=== PATIENT | male | born 1990 | race Caucasian/White ===

== ENCOUNTER 2021-08-04 13:15 | Emergency (ER) | payer OTHER, SELFPAY ==
[2021-08-04 13:18] VITALS: BP 136/63; PULSE 72; RESP 14; TEMP 36.6; O2SAT 100; BMI 34.0
--- NOTE | 2021-08-04 13:45 | ED_ITS ---
HPI - Wound/Laceration <Renzo Benito PA-C - Last Filed: 08/04/21 19:41> General Chief Complaint: Wound/Laceration Stated Complaint: cut thumb lt hand Time Seen by Provider: 08/04/21 13:23 Source: patient Mode of arrival: Ambulatory Limitations: no limitations History of Present Illness HPI narrative: Patient is a 30-year-old male presenting to the emergency department today for evaluation of a left thumb laceration that was sustained today. Patient states that he unintentionally cut himself approximately 1 hour prior to arriving to the emergency department on a replacement razor. Patient rates his pain a 1/10 in intensity but does note mild tingling sensations in the left thumb. Patient denies fever, chills, numbness, dizziness, lightheadedness. Of note, patient states that he cannot recall his most recent tetanus shot. No other concerns voiced at this time. Related Data Allergies Allergy/AdvReac Type Severity Reaction Status Date / Time No Known Drug Allergies Allergy Verified 08/04/21 13:23 Review of Systems <Renzo Benito PA-C - Last Filed: 08/04/21 19:41> Constitutional Constitutional: Denies chills, Denies fatigue, Denies fever(s), Denies frequent falls, Denies lethargy and Denies weakness Eyes Eyes: Denies loss of vision ENT Ears, Nose, Mouth, and Throat: Denies change in voice, Denies dizziness, Denies neck pain, Denies sore throat and Denies throat swelling Cardiovascular Cardiovascular: Denies chest pain, Denies irregular heart rhythm, Denies lightheadedness, Denies palpitations, Denies dyspnea, Denies dyspnea on exertion and Denies orthopnea Respiratory Respiratory: Denies cough, Denies dyspnea, Denies dyspnea on exertion and Denies wheezing Gastrointestinal Gastrointestinal: Denies abdominal pain, Denies change in bowel habits, Denies diarrhea, Denies nausea and Denies vomiting Musculoskeletal Musculoskeletal: Denies back pain, Denies muscle weakness, Denies neck pain, D enies numbness and Denies tingling Integumentary/Breasts Skin/Breast: Denies pruritus, Denies erythema, Denies rash and Reports wounds (Laceration to left thumb) Neurologic Neurologic: Denies behavioral changes, Denies confusion, Denies dizziness, Denies frequent falls, Denies loss of vision, Denies numbness, Denies tingling and Denies weakness Psychiatric Psychiatric: Denies behavioral changes and Denies confusion Endocrine Endocrine: Denies fatigue and Denies palpitations Allergic/Immunologic Allergic/Immunologic: Denies throat swelling and Denies wheezing Patient History <Renzo Benito PA-C - Last Filed: 08/04/21 19:41> Social History Smoking Status: Unknown if ever smoked Smoking Status: Unknown if ever smoked alcohol intake frequency: holidays/special occasions only Substance Use Type: does not use Exam <Renzo Benito PA-C - Last Filed: 08/04/21 19:41> Narrative Exam Narrative: GENERAL: 30 year old patient appears stated age. Well-developed patient, in no acutedistress. HEAD: Atraumatic. Normocephalic. EYES: Pupils equal round and reactive. Extraocular motions intact. No scleral icterus. No injection or drainage. ENT: Nose without bleeding, purulent drainage. Throat without erythema, tonsillar hypertrophy or exudate. Airway patent. NECK: Trachea midline. Non tender CARDIOVASCULAR: Regular rate and rhythm without murmurs, gallops, or rubs. RESPIRATORY: Clear to auscultation. Breath sounds equal bilaterally. No wheezes, rales, or rhonchi. GASTROINTESTINAL: Abdomen soft, non-tender, nondistended. EXTREMITIES: No edema or joint tenderness. Gross motor function intact throughout the left thumb. Good sensation appreciated throughout the bilateral upper extremities to light touch. BACK: Nontender without deformity or crepitance. No flank tenderness. NEURO: AOx3. SKIN: No rash or erythema of visible areas. Approximately 1 cm linear laceration along the medial aspect of the left thumb without surrounding erythema. Initial Vital Signs Initial Vital Signs: Vital Signs Temperature 97.8 F 08/04/21 13:18 Pulse Rate 72 08/04/21 13:18 Respiratory Rate 14 08/04/21 13:18 Blood Pressure 136/63 08/04/21 13:18 Pulse Oximetry 100 08/04/21 13:18 Cardio Pulses: radial pulses present bilaterally <Simba Cordova DO - Last Filed: 08/08/21 07:08> Initial Vital Signs Initial Vital Signs: Vital Signs Temperature 97.8 F 08/04/21 13:18 Pulse Rate 72 08/04/21 13:18 Respiratory Rate 14 08/04/21 13:18 Blood Pressure 136/63 08/04/21 13:18 Pulse Oximetry 100 08/04/21 13:18 Procedures <Renzo Benito PA-C - Last Filed: 08/04/21 19:41> Laceration Repair Laceration 1: Time of procedure: 14:33 Site: hand (Left thumb) Side (If applicable): left Size (cm): 1 Description: linear Depth: simple, single layer Local Anesthetic: lidocaine 1% and with bicarb Amount of anesthesia used (mL): 3 Pre-repair: wound explored, irrigated extensively and deep structures intact Skin layer closed with: nylon Size (cm): 5-0 Number of sutures: 4 Technique: simple, interrupted Course <Renzo Benito PA-C - Last Filed: 08/04/21 19:41> Course Course Narrative: 10 mL of 1% lidocaine ordered. Tdap ordered and will be administered. Orders Ordered: Discontinued Medications Diphtheria/Tetanus/Acell Pertussis (Tet,Diph,Pertuss(Acell),Vac/Pf 0.5 Ml Syringe) 0.5 ml IM .ONCE ONE Stop: 08/04/21 13:26 Last Admin: 08/04/21 13:59 Dose: 0.5 ml Documented by: CHEIKH Lidocaine HCl (Lidocaine 1% 20 Ml) 10 ml INJ NOW ONE Stop: 08/04/21 13:36 Last Admin: 08/04/21 13:56 Dose: Not Given Documented by: FRANKTONE Lidocaine/Sodium Bicarbonate (Lido 1%/Sod Bicarb 8.4% (10ml) 10 Ml Syringe) 10 ml INJ NOW ONE Stop: 08/04/21 13:56 Last Admin: 08/04/21 14:00 Dose: 10 ml Documented by: CHEIKH Vital Signs Vital signs: Vital Signs - 8 hr 08/04/21 13:18 Temperature 97.8 F Pulse Rate 72 Respiratory Rate 14 Blood Pressure 136/63 Pulse Oximetry 100 <Simba Cordova DO - Last Filed: 08/08/21 07:08> Orders Ordered: Discontinued Medications Diphtheria/Tetanus/Acell Pertussis (Tet,Diph,Pertuss(Acell),Vac/Pf 0.5 Ml Syringe) 0.5 ml IM .ONCE ONE Stop: 08/04/21 13:26 Last Admin: 08/04/21 13:59 Dose: 0.5 ml Documented by: CHEIKH Lidocaine HCl (Lidocaine 1% 20 Ml) 10 ml INJ NOW ONE Stop: 08/04/21 13:36 Last Admin: 08/04/21 13:56 Dose: Not Given Documented by: CHEIKH Lidocaine/Sodium Bicarbonate (Lido 1%/Sod Bicarb 8.4% (10ml) 10 Ml Syringe) 10 ml INJ NOW ONE Stop: 08/04/21 13:56 Last Admin: 08/04/21 14:00 Dose: 10 ml Documented by: CHEIKH Vital Signs Vital signs: Vital Signs - 8 hr 08/04/21 13:18 Temperature 97.8 F Pulse Rate 72 Respiratory Rate 14 Blood Pressure 136/63 Pulse Oximetry 100 MDM - Wound/Laceration <Renzo Benito PA-C - Last Filed: 08/04/21 19:41> [facility] Narrative Medical decision making narrative: Patient is a 30-year-old male presenting to the emergency department today for evaluation of a left thumb laceration that was sustained today. To consider skin laceration versus tendon rupture. Discussed with patient strict return precautions prior to discharge. Advised patient to have sutures removed in 10- 14 days. Discharge Plan Departure Patient Disposition: Home Clinical Impression: Laceration Instructions: DI for Laceration Repair Activity Restrictions/Additional Instructions: *You have been diagnosed with left thumb laceration *What to do: *Please continue to take your regular medications as directed. [ ] New medication prescriptions sent to your pharmacy: [ ] [ ] New medication written as a paper prescription [X] No new medications given *Please follow up with your primary care provider in 2-3 days, call for an appointment. Let them know you were seen in the Emergency Department and that we ask that you be seen in follow up. We will electronically transmit a record of today's note if your PCP is in our system. *Please have sutures removed in 10-14 days. He may return to the emergency department to have the sutures removed, follow-up with your primary care provider, or visit in urgent care. Please avoid soaking the incision. *If you do not have a primary care provider please contact the [facility] Resource line at [phone]. They will ask some questions about your medical history and help get you set up with a doctor in the community. *Return to Emergency Department if you should have any new, worsening or concerning symptoms, such as fever greater than 101 F, shaking chills, worsening pain, laceration site redness, laceration sites swelling, laceration site warmth, laceration site discharge, persistent vomiting or other bothersome symptoms. <Simba Cordova, DO - Last Filed: 08/08/21 07:08> Cosign ED Attending Cosignature Attestation: Dr Cordova Co-Sign Statement: I was available for consultation during this patient's emergency department visit. This chart is signed by myself for administrative purposes only. I did not have direct contact with this patient during this visit. They were seen independently by the APC.
[2021-08-04] MEDS: TET,DIPH,PERTUSS(ACELL),VAC/PF 0.5 ML SYRINGE IM (13:59)
[2021-08-04] MEDS: LIDO 1%/SOD BICARB 8.4% (10ML) 10 ML SYRINGE INJ (14:00)
== END 2021-08-04 14:52 | disposition home or self-care (01) ==
PROVIDERS: Emergency Provider Physician Assistant
DX: S61.012A Laceration without foreign body of left thumb without damage to nail, initial encounter (principal); W26.8XXA Contact with other sharp object(s), not elsewhere classified, initial encounter; Z23 Encounter for immunization
CPT/HCPCS: 12001; 90471; 99283; 99284; 90715